=== PATIENT | female | born 1940 | race Caucasian/White ===

== ENCOUNTER 2017-06-07 07:25 | Day surgery (SDC) | payer OTHER ==
[~2017-06-07] VITALS: Ht 177.8 cm; Wt 80.0 kg
[~2017-06-07 07:25] MED LIST: CHOL100011 PO; LEVO25TA4 PO
[2017-06-07] MEDS ORDERED: FENTANYL PF 250 MCG/5ML ONE (08:39)
[2017-06-07] MEDS ORDERED: morphine SULFATE 10 MG/ML, 1ML IV PRN (09:00)
[2017-06-07] MEDS ORDERED: PROMETHAZINE 12.5 MG SUPP PR PRN (09:00)
[2017-06-07] MEDS ORDERED: MEPERIDINE/PF 25MG/0.5ML IVPush PRN (09:00)
[2017-06-07] MEDS ORDERED: FENTANYL PF 100 MCG/2ML IV PRN (09:00)
[2017-06-07] MEDS ORDERED: ONDANSETRON 2MG/ML, 2ML IVPush PRN (09:00)
[2017-06-07] MEDS ORDERED: hydrALAzine 20 MG/ML, 1ML IV PRN (09:00)
[2017-06-07] MEDS ORDERED: OXYcodone 5 MG/5 ML ORAL.SOL UDC PO PRN (09:00)
[2017-06-07] MEDS ORDERED: HYDROmorphone 1 MG/ML, 1ML IV PRN (09:00)
[2017-06-07] MEDS ORDERED: ACETAMINOPHEN 500 MG TABLET PO STA (09:39)
[2017-06-07] MEDS ORDERED: GABAPENTIN 300 MG CAPSULE PO STA (09:39)
[2017-06-07] MEDS ORDERED: SCOPOLAMINE PATCH, 1.5MG PATCH.TD72 TD STA (09:39)
[2017-06-07 09:44] VITALS: BP 177/92
[2017-06-07] MEDS: LACTATED RINGERS 1,000 ML IV SCH ×2 (09:51→10:02)
[2017-06-07] MEDS ORDERED: PROPOFOL 10 MG/ML, 20ML ONE ×2 (10:39)
[2017-06-07] MEDS ORDERED: DEXAMETHASONE 4 MG/ML, 1ML ONE (10:39)
[2017-06-07] MEDS ORDERED: CEFAZOLIN 1,000 MG ONE (10:42)
[2017-06-07] MEDS ORDERED: BUPIVACAINE/PF 0.5% INFIL ONE (11:12)
[2017-06-07] MEDS ORDERED: EPINEPHRINE 1 MG/ML, 1ML INFIL ONE (11:13)
[2017-06-07] MEDS ORDERED: ONDANSETRON 2MG/ML, 2ML ONE (11:39)
[2017-06-07] MEDS ORDERED: OXYcodone 5 MG/5 ML ORAL.SOL UDC ONE (12:08)
[2017-06-07] MEDS ORDERED: FENTANYL PF 100 MCG/2ML ONE (12:08)
[2017-06-07] MEDS ORDERED: LABETALOL 5MG/ML, 20ML ONE (12:15)
[2017-06-07] MEDS: LABETALOL 5MG/ML, 20ML IV PRN ×4 (12:17→12:57)
[2017-06-07] MEDS ORDERED: hydrALAzine 20 MG/ML, 1ML ONE (12:24)
[2017-06-07] MEDS ORDERED: LIDOCAINE 1%, 20ML ONE (16:49)
== END 2017-06-07 14:05 ==
LOC: CFH 07:25 → OUT 14:05
PROVIDERS: ATTEND Surgery
DX: C50.411 Malignant neoplasm of upper-outer quadrant of right female breast (principal); E03.9 Hypothyroidism, unspecified; F41.9 Anxiety disorder, unspecified; Z79.899 Other long term (current) drug therapy; Z98.890 Other specified postprocedural states; Z88.0 Allergy status to penicillin; Z72.89 Other problems related to lifestyle; Z87.891 Personal history of nicotine dependence
CPT/HCPCS: 19285; 19301; 38525; 38792; 76098; 77065; 88307; 88329; 93005; A9541; J0171; J0690; J1100; J2405; J2704; J3010; J3490; J7120

== ENCOUNTER → 2017-06-22 | Outpatient (CLI) | payer OTHER | END | disposition home or self-care (01) | LOC: ROC 13:22 | PROVIDERS: ATTEND Radiology Radiation Oncology | DX: C50.911 Malignant neoplasm of unspecified site of right female breast (principal) | CPT/HCPCS: 99214; G0463 ==

== ENCOUNTER → 2017-08-23 | Outpatient (CLI) | payer OTHER | END | disposition home or self-care (01) | LOC: ROC 09:13 | PROVIDERS: ATTEND Radiology Radiation Oncology | DX: C50.411 Malignant neoplasm of upper-outer quadrant of right female breast (principal) | CPT/HCPCS: 99213; G0463 ==

== ENCOUNTER → 2017-09-04 | Outpatient (CLI) | payer OTHER | END | disposition home or self-care (01) | LOC: CFH 08:04 | PROVIDERS: ATTEND Internal Medicine Hematology & Oncology | DX: Z13.820 Encounter for screening for osteoporosis (principal); M85.80 Other specified disorders of bone density and structure, unspecified site; C50.411 Malignant neoplasm of upper-outer quadrant of right female breast | CPT/HCPCS: 77080 ==

== ENCOUNTER → 2017-09-17 | Outpatient (CLI) | payer OTHER | END | disposition home or self-care (01) | LOC: CVU 07:46 → EDSTATUS 08:00 | PROVIDERS: ATTEND Internal Medicine Cardiovascular Disease | DX: I08.2 Rheumatic disorders of both aortic and tricuspid valves (principal) | CPT/HCPCS: 93306 ==

== ENCOUNTER → 2018-08-15 | Outpatient (CLI) | payer MEDICARE | END | disposition home or self-care (01) | LOC: CFH 10:59 | PROVIDERS: ATTEND Internal Medicine Hematology & Oncology | DX: Z12.31 Encounter for screening mammogram for malignant neoplasm of breast (principal); Z88.0 Allergy status to penicillin | CPT/HCPCS: 77063; 77067 ==